=== PATIENT | male | born 1955 | race Caucasian/White ===

== ENCOUNTER 2019-04-03 14:34 | Inpatient (IN) ==
--- NOTE | 2019-04-03 15:02 | Emergency Department Note ---
ED Disposition Clinical Impression: Community acquired pneumonia Qualifiers: Laterality: left Lung location: upper lobe of lung Qualified Code(s): J18.1 - Lobar pneumonia, unspecified organism Disposition: Admitted as Observation Condition on Discharge: Fair Referrals: Provider,Referral, [Primary Care Provider] - - Critical Care Critical Care Time: No Attestation: On 04/03/19, the high probability of a clinically significant, sudden or life threatening deterioration of the following system(s) required my full and direct attention, intervention and personal management. The time I documented below is in addition to time spent performing reported procedures but includes the following listed in this critical care notation. Medical Decision Making - [place] Inquiry Pt receiving controlled substance: No Vital Signs: 04/03/19 14:46 Temperature 101.3 F H Temperature Source Oral Pulse Rate [Right Radial] 120 H Respiratory Rate 24 Blood Pressure [Right Arm] 167/96 H Blood Pressure Mean [Right Arm] 119 Blood Pressure Source [Right Arm] Automatic Cuff Blood Pressure Position [Right Arm] Supine 02 Sat by Pulse Oximetry 93 L Oxygen Delivery Method Room Air - Lab Data Lab Results 04/03/19 15:00: WBC 9.8, RBC 5.52, Hgb 15.5, Hct 47.9, MCV 86.8, MCH 28.2, MCHC 32.4, RDW 13.5, Plt Count 270, MPV 9.8, Neut % (Auto) 83.1 H, Lymph % (Auto) 12.3, [place] % (Auto) 3.8, Eos % (Auto) 0.3, Baso % (Auto) 0.4, Neut # (Auto) 8.2 H, Lymph # (Auto) 1.2, [place] # (Auto) 0.4, Eos # (Auto) 0.0, Baso # (Auto) 0.0 04/03/19 15:00: Lactate 1.8 04/03/19 15:44: Sodium 131 L, Potassium 4.4, Chloride 97 L, Carbon Dioxide 23, Anion Gap 15.4 H, BUN 21 H, Creatinine 1.19, Estimated Creat Clear 74, Estimated GFR 62, Est GFR ( Amer) 75, Glucose 124 H, Calcium 8.3 L Result diagrams: 04/03/19 15:00 04/03/19 15:44 Orders (Tests/Meds): ED MEDICATIONS Generic Name Dose Route Start Last Admin Trade Name Freq PRN Reason Stop Dose Admin Ceftriaxone Sodium 1 gm/ 50 mls @ 100 mls/hr 04/03/19 16:15 04/03/19 16:13 Sodium Chloride IV 04/17/19 16:14 100 mls/hr Q24H MIRI Administration Protocol Azithromycin 500 mg/ Sodium 250 mls @ 250 mls/hr 04/03/19 16:15 04/03/19 16:23 Chloride IV 04/17/19 16:14 250 mls/hr Q24H MIRI Administration Protocol Discontinued Medications Generic Name Dose Route Start Last Admin Trade Name Freq PRN Reason Stop Dose Admin Acetaminophen 1,000 mg 04/03/19 15:06 04/03/19 15:07 Tylenol 500mg Tablet PO 04/03/19 15:07 1,000 mg ONCE ONE Administration ORDERS Category Date Time Status Diarrhea 23 Panel, PCR Stat Lab 04/03/19 15:20 Ordered Upper Respiratory Panel, PCR Stat Lab 04/03/19 17:27 Ordered Urinalysis and Microscopic Stat Lab 04/03/19 15:16 Ordered Blood Culture Stat Micro 04/03/19 15:00 Received - Radiology Data #1 Image(s): Chest Image Reviewed: Yes I reviewed the patient's radiology image Large infiltrate left upper to midlung - Physician Consults Physician Consulted: Isabella Time: 17:28 Reason -: Admission Comment/Response: Agrees to admit the patient to the hospital. We discussed the patient's clinical information, including history, exam, laboratory and radiology results and ED course. Per hospital procedure, I will write temporary bridge inpatient orders on the patient. Specific orders requested by the admitting physician: Continue antibiotics. Upper respiratory panel. General Adult HPI - General Chief complaint: Fever Stated complaint: flu+, lethargic, loss of appetite Time Seen by Provider: 04/03/19 15:01 Mode of Arrival: Wheelchair Limitations: No Limitations Description of Symptoms (Recalled from ER Triage Doc. by RN): Positive flu on 03/31/19, states he feels worse today. - History of Present Illness HPI narrative: Sick for about 1 week. Has had frontal headaches, generalized weakness, intermittent explosive diarrhea, malaise, intermittent confusion, poor appetite. Denies cough, rhinorrhea, sore throat. states infrequent intermittent cough. Denies shortness of breath, but states he seems to be breathing heavily at times. No vomiting. Denies abdominal pain. No neck pain or stiffness. Seen at urgent treatment center in [place] on 03/31/2019 and had a flu test that was positive. Prescribed Tamiflu. No significant change in condition. Does not have a primary care provider. Normally healthy, on no medications. He is a smoker. - Related Data Allergies Allergy/AdvReac Type Severity Reaction Status Date / Time No Known Allergies Allergy Verified 04/03/19 14:53 [facility] History - Hepatitis A Screen Drug use history?: No High risk sexual behaviors?: No History of sexually transmitted infection?: No Currently employed?: No Childcare worker?: No Do you have indoor plumbing?: Yes Do you have electricity?: Yes Attestation statement:: This patient has been screened for Hepatitis A risk factors. I have reviewed the patient's past medical history: Yes ROS Obtained: Yes All systems reviewed & no additional complaints - Constitutional Constitutional: Reports fatigue, Reports fever(s), Reports poor appetite, Reports lethargy, Reports malaise, Reports weakness - ENT Ears, Nose, Mouth, and Throat: Denies nasal discharge, Denies sore throat - Cardiovascular Cardiovascular: Denies chest pain - Respiratory Respiratory: No cough, No dyspnea - Gastrointestinal Gastrointestingal: Reports: diarrhea. Denies: abdominal pain - Genitourinary Male Genitourinary: Denies difficulty urinating - Neurologic Neurologic: Reports headache(s) Physical Exam - General General appearance: alert, in no apparent distress - Head Head exam: atraumatic, normocephalic - Eye Eye exam: Present: normal appearance, PERRL, EOMI - ENT ENT exam: Present: mucous membranes dry - Neck Neck exam: Present: normal inspection, full ROM, trachea midline. Absent: meningismus, lymphadenopathy - Chest Chest inspection: Present: normal inspection, symmetric chest wall rise - Respiratory Respiratory exam: Present: other (crackles Left). Absent: respiratory distress - Cardiovascular Cardiovascular exam: Present: regular rate, normal rhythm, normal heart sounds - Abdominal Exam Abdominal exam: Present: soft, tenderness, normal bowel sounds. Absent: distention, guarding, rebound, rigidity Abdominal tenderness: Present: diffuse, mild - Extremities Exam Extremities exam: Present: normal inspection - Neurological Exam Neurological exam: Present: alert, oriented X3 - Psychiatric Psychiatric exam: Present: normal affect, normal mood - Skin Skin exam: Present: warm, dry
[2019-04-03 15:17] LABS: Basophils % 0.4 % (0.1-2.0); Eosinophils % 0.3 % (0.1-12.0); Hematocrit 47.9 % (42.0-52.0); Hemoglobin 15.5 g/dL (14.1-18.0); Lymphocytes # 1.2 K/mm3 (0.7-4.5); Lymphocytes % 12.3 % (10-50); Mean Corpuscular HGB Conc 32.4 g/dL (31.8-35.4); Mean Corpuscular Volume 86.8 fl (80-94); Mean Platelet Volume 9.8 fl (7.4-10.4); Monocytes # 0.4 K/mm3 (0.1-1.0); Monocytes % 3.8 % (1.7-9.3); Neutrophils # 8.2 K/mm3 (1.8-7.8); Neutrophils % 83.1 % (37.0-80.0); Platelet Count 270 K/mm3 (142-424); Red Blood Count 5.52 M/mm3 (4.60-6.20); Red Cell Distribution Width 13.5 % (11.5-17.5); White Blood Count 9.8 K/mm3 (4.8-10.8)
[2019-04-03 16:03] LABS: Anion Gap 15.4 mEq/L (5-15); Calcium 8.3 mg/dL (8.5-10.1)
[2019-04-03 17:35] LABS: Coronavirus 229E Not Detected (NotDetected); Coronavirus NL63 Not Detected (NotDetected); Coronavirus OC43 Not Detected (NotDetected); Coronovirus HKU1,PCR Not Detected (NotDetected)
--- NOTE | 2019-04-04 07:35 | Pharmacy Consult Notes ---
[facility] Pharmacy VTE Monitoring - Patient Demographics Admission date: 04/04/19 Report Date: 04/04/19 Time: 07:35 Allergies/Adverse Reactions: Patient Allergies No Known Allergies Allergy (Verified 04/03/19 14:53) Height: 1.91 m Weight: 97.324 kg Patient Problems: Current Active Problems (Updated 04/03/19 @ 16:08 by Jadiel Alberts MD) Community acquired pneumonia (Acute) - VTE Risk Labs: VTE Related Lab Results Hgb 15.5 g/dL (14.1-18.0) 04/03/19 15:00 Hct 47.9 % (42.0-52.0) 04/03/19 15:00 Plt Count 270 K/mm3 (142-424) 04/03/19 15:00 BUN 21 mg/dL (7-18) H 04/03/19 15:44 Creatinine 1.19 mg/dL (0.70-1.30) 04/03/19 15:44 Estimated Creat Clear 74 mL/min (50-200) 04/03/19 15:44 Was VTE Risk Assessment Performed: Yes VTE Risk Level: Very Low Risk Clinical Trial Participant: No - Prophylaxis VTE Prophylaxis Ordered?: Yes Types of VTE Prophylaxis: TEDS Knee High
--- NOTE | 2019-04-04 07:45 | History & Physical Report ---
*Admission Date: 04/04/19 *Chief complaint: Cough/fever *History of present illness: 63-year-old white male, who has enjoyed excellent health and functional status but is a lifelong smoker, came to the emergency department with fever, chills, shortness of air and weakness. He had attended an urgent treatment center the day before where he had been diagnosed with influenza based on a positive rapid antigen test, and had been placed on Tamiflu. Failed to improve, and came to the emergency department. He was found to have significant infiltrate in the chest, and given his relatively low oxygen levels he was admitted to hospital for intravenous therapy, further diagnostic testing and pulmonary toilet. [facility] History I have reviewed the patient's past medical history: Yes Medical History: Denies:: Cancer, Diabetes Mellitus Type 1, Diabetes Mellitus Type 2, MRSA *Have you ever received a pneumonia vaccine?: No *Have you received a flu vaccine this season?: No Amputation: No - *Social History Educational Level: Attended College Smoking Status: Current every day smoker Tobacco Type: cigarettes # Packs/Day (cigarettes): 2 Alcohol Intake: current Alcohol Intake Frequency:: holidays/special occasions only *Occupational Status:: employed Housing: house Household Members: spouse, children *Travel in the last 8 weeks: None - Psychiatric History Expresses thoughts of harming self/others: None Suicide Plan Description: No Plan Family Hx:: No significant family history Review of Systems - Review of Systems Review of systems:: pertinent systems reviewed and negative unless documented below - Constitutional Reports body ache(s), Reports chills, Reports fever(s), Reports headache(s), Denies anorexia - Eyes Denies blind spots, Denies blurry vision - ENT Denies abnormal hearing, Denies poor balance, Denies dizziness - *Cardiovascular Reports shortness of breath, Denies chest pain, Denies chest pain at rest, Denies shortness of breath with activity, Denies irregular heart rhythm, Denies shortness of breath when lying down - *Respiratory Reports chest congestion, Reports cough, Reports shortness of breath, Denies change in phlegm color - *Gastrointestinal Denies abdominal pain, Denies change in stools, Denies heartburn - *Genitourinary Denies difficulty urinating, Denies erectile dysfunction - *Musculoskeletal Denies abnormal walking, Denies joint swelling - Integumentary/Breasts Denies change in skin color, Denies changing lesions, Denies yellowing of the skin - *Neurologic Reports headache(s), Reports weakness - Psychiatric Denies abnormal sleep pattern - Endocrine Denies cold intolerance, Denies excessive sweating Meds Home Medications Medication Instructions Recorded Confirmed Type No Known Home Medications 04/03/19 04/03/19 History Allergies Allergy/AdvReac Type Severity Reaction Status Date / Time No Known Allergies Allergy Verified 04/03/19 14:53 Exam Vital signs and Labs for Last 24 Hours: Temp Pulse Resp BP Pulse Ox 99.7 F H 112 H 26 H 134/83 92 L 04/04/19 04:00 04/04/19 06:12 04/04/19 04:00 04/04/19 04:00 04/04/19 06:12 Laboratory Results - last 24 hr 04/03/19 15:00: WBC 9.8, RBC 5.52, Hgb 15.5, Hct 47.9, MCV 86.8, MCH 28.2, MCHC 32.4, RDW 13.5, Plt Count 270, MPV 9.8, Neut % (Auto) 83.1 H, Lymph % (Auto) 12.3, [place] % (Auto) 3.8, Eos % (Auto) 0.3, Baso % (Auto) 0.4, Neut # (Auto) 8.2 H, Lymph # (Auto) 1.2, [place] # (Auto) 0.4, Eos # (Auto) 0.0, Baso # (Auto) 0.0 04/03/19 15:00: Lactate 1.8 04/03/19 15:44: Sodium 131 L, Potassium 4.4, Chloride 97 L, Carbon Dioxide 23, Anion Gap 15.4 H, BUN 21 H, Creatinine 1.19, Estimated Creat Clear 74, Estimated GFR 62, Est GFR ( Amer) 75, Glucose 124 H, Calcium 8.3 L 04/03/19 17:30: Chlamy pneumoniae PCR Not detected, Adenovirus (PCR) Not detected, B. pertussis DNA (PCR) Not detected, Coronavirus OC43 (PCR) Not detected, Coronavirus HKU1 (PCR) Not detected, Coronavirus 229E (PCR) Not detected, Coronavirus NL63 (PCR) Not detected, Human Metapneumovir PCR Not detected, Influenza A (H1) PCR Not detected, Influ A (H1N1/09) PCR Not detected, Influenza A (H3) PCR Not detected, Influenza Type A (PCR) Not detected, Influenza Type B (PCR) Not detected, M. pneumoniae (PCR) Not detected, Parainfluenza 1 (PCR) Not detected, Parainfluenza 2 (PCR) Not detected, Parainfluenza 3 (PCR) Not detected, Parainfluenza 4 (PCR) Not detected, RSV (PCR) Not detected, Entero/Rhino (PCR) Not detected I & O for Last 24 hours: Intake & Output 04/01/19 04/02/19 04/03/19 04/04/19 11:59 11:59 11:59 11:59 Weight 214 lb 9 oz Narrative: Heart rate regular, patient is pleasant, alert, oriented x3. Oropharynx slightly dry, nicotine halitosis, otherwise clear. No JVD. Lungs have crackles and rhonchi in the left lung field up to the midlung. Right side also has some rhonchi. No edema or clubbing. Neurologically intact. Assessment and Plan (1) Personal history of nicotine dependence Current visit: Yes Status: Acute Category: Medical Code(s): Z87.891 - Personal history of nicotine dependence Discussed smoking cessation in the future. Currently doing well in the hospital. (2) Community acquired pneumonia Current visit: Yes Status: Acute Qualifiers: Laterality: left Lung location: upper lobe of lung Qualified Code(s): J18.1 - Lobar pneumonia, unspecified organism Category: Medical Code(s): J18.9 - Pneumonia, unspecified organism Multilobar pneumonia, aggressive antibiotic therapy, await sputum culture.
--- NOTE | 2019-04-04 15:25 | Carotid Imaging Report ---
"Cerebrovascular Exam Indications: 781.3 Lack of coordination. IMPRESSIONS 1. The bilateral vertebral arteries are patent with normal antegrade flow. 2. Study suggests less than 20% stenosis involving the right internal carotid artery and the left internal carotid artery. History: Risk factors: Current tobacco use. Altered mental status Carotid duplex study. Complete study and Doppler flow study including spectral analysis, color and de la torre scale imaging. Location: Bedside. Patient status: Inpatient. Tables: Arterial flow: + +--------+--------+ |Location |V sys |V ed | + +--------+--------+ |Right CCA - proximal|67.6cm/s|18.9cm/s| + +--------+--------+ |Right CCA - distal |70.7cm/s|21.2cm/s| + +--------+--------+ |Right ECA |91.1cm/s|--------| + +--------+--------+ |Right ICA - proximal|72.3cm/s|25.9cm/s| + +--------+--------+ |Right ICA - mid |105cm/s |38.5cm/s| + +--------+--------+ |Right ICA - distal |95.9cm/s|28.3cm/s| + +--------+--------+ |Right vertebral |44.8cm/s|--------| + +--------+--------+ |Left CCA - proximal |83.3cm/s|19.6cm/s| + +--------+--------+ |Left CCA - distal |81.7cm/s|26.7cm/s| + +--------+--------+ |Left ECA |77.8cm/s|--------| + +--------+--------+ |Left ICA - proximal |69.9cm/s|18.9cm/s| + +--------+--------+ |Left ICA - mid |73.1cm/s|20.4cm/s| + +--------+--------+ |Left ICA - distal |69.1cm/s|21.2cm/s| + +--------+--------+ |Left vertebral |45.6cm/s|--------| + +--------+--------+ Velocity ratios: + + + + + + | |Right, V sys|Right, V ed|Left, V sys|Left, V ed| + + + + + + |Max ICA/dist CCA|1.49 |1.82 |0.89 |0.79 | + + + + + + (Report amended ) Electronically signed by: Esdras Leos [id number]"
[2019-04-04 19:01] LABS: Amphetamine/Metha Screen,Urine Negative ng/mL (<1000); Barbiturates Screen,Urine Negative ng/mL (<200); Benzodiazepines Screen,Urine Negative ng/mL (<200); Cannabinoid Screen,Urine Negative ng/mL (<50); Cocaine Screen,Urine Negative ng/mL (<300); Methadone Screen,Urine Negative ng/mL (<300); Opiate Screen,Urine Negative ng/mL (<300); Phencyclidine Screen,Urine Negative ng/mL (<25)
[2019-04-04 19:25] LABS: Appearance,Urine CLEAR (Clear); Blood, Urine 2+ (Negative); Color,Urine YELLOW (Yellow); Glucose,Urine (UA) Negative (Negative); Ketones,Urine Negative (Negative); Leukocyte Esterase,Urine Negative (Negative); Microscopic, Urine URINE MICROSCOPIC (MICROSCOPIC); Protein,Urine 2+ (Negative); Specific Gravity, Urine 1.025 (1.005-1.030)
[2019-04-04 19:43] LABS: Bilirubin,Urine 1+ (Negative)
[2019-04-04 19:44] LABS: Bacteria,Urine 1+ /lpf; RBC,Urine 20-50 #/hpf (0-3); Squamous Epithelial Cell,Urine Occasional #/hpf (0-5)
[2019-04-04 19:50] LABS: Basophils % 0.4 % (0.1-2.0); Eosinophils % 0.1 % (0.1-12.0); Hematocrit 43.3 % (42.0-52.0); Hemoglobin 14.1 g/dL (14.1-18.0); Lymphocytes # 0.5 K/mm3 (0.7-4.5); Lymphocytes % 5.8 % (10-50); Mean Corpuscular HGB Conc 32.7 g/dL (31.8-35.4); Mean Corpuscular Volume 88.2 fl (80-94); Mean Platelet Volume 8.5 fl (7.4-10.4); Monocytes # 0.5 K/mm3 (0.1-1.0); Monocytes % 5.7 % (1.7-9.3); Neutrophils # 8.1 K/mm3 (1.8-7.8); Platelet Count 275 K/mm3 (142-424); Red Blood Count 4.91 M/mm3 (4.60-6.20); Red Cell Distribution Width 13.7 % (11.5-17.5); White Blood Count 9.2 K/mm3 (4.8-10.8)
[2019-04-04 19:56] LABS: Anion Gap 12.2 mEq/L (5-15); Calcium 8.3 mg/dL (8.5-10.1)
[2019-04-04 20:55] LABS: Lymphocytes % 4 % (10-50); Monocytes % 3 % (2-9); Neutrophils % 85 % (42-76); RBC Morphology Normal; Total Cells Counted 100
--- NOTE | 2019-04-05 08:29 | Progress Note ---
Internal Medicine - PN: Subj *Date: 04/05/19 *Time: 08:26 Interval history: Patient has done fairly well in regards to eating and drinking. Nurses last night noticed that he was a little bit more confused and somewhat sluggish to respond, his who was visiting him yesterday also told our nursing staff that he had been exhibiting some mental sluggishness over the past [address] scan of head which was nondiagnostic for acute issues, showing some age-related changes, and also ordered urine drug screen, urinalysis and repeat labs which were really nondiagnostic. This morning the patient has slept well and states that he is feeling better, but does exhibit some sluggishness of his speech and some cognitive slowing that I did not appreciate yesterday morning. He notes a pressure feeling when he sits up and is very slow when he moves around deliberately because of this potential for a headache sensation if he sits up rapidly. Exam Vital signs and Labs for Last 24 Hours: Temp Pulse Resp BP Pulse Ox 97.8 F 103 H 18 148/89 H 90 L 04/05/19 07:30 04/05/19 07:30 04/05/19 07:30 04/05/19 07:30 04/05/19 07:30 Laboratory Results - last 24 hr 04/04/19 14:51: TSH 0.47 04/04/19 18:43: Urine Opiates Screen Negative, Urine Methadone Screen Negative, Ur Barbituates Screen Negative, Ur Phencyclidine Scrn Negative, Ur Amphetamines Screen Negative, U Benzodiazepines Scrn Negative, Urine Cocaine Screen Negative, U Marijuana (THC) Screen Negative 04/04/19 18:43: Urine Color Yellow, Urine Appearance Clear, Urine pH 6.0, Ur Specific [place] 1.025, Urine Protein 2+, Urine Glucose (UA) Negative, Urine Ketones Negative, Urine Blood 2+, Urine Nitrate Negative, Urine Bilirubin 1+ A, Urine Urobilinogen 1.0, Ur Leukocyte Esterase Negative, Urine RBC 20-50, Urine WBC 3-5, Ur Squamous Epith Cells Occasional, Urine Bacteria 1+ 04/04/19 18:43: Urine Eosinophils Absent 04/04/19 19:34: WBC 9.2, RBC 4.91, Hgb 14.1, Hct 43.3, MCV 88.2, MCH 28.8, MCHC 32.7, RDW 13.7, Plt Count 275, MPV 8.5, Neut % (Auto) 88.0 H, Lymph % (Auto) 5.8 L, [place] % (Auto) 5.7, Eos % (Auto) 0.1, Baso % (Auto) 0.4, Neut # (Auto) 8.1 H, Lymph # (Auto) 0.5 L, [place] # (Auto) 0.5, Eos # (Auto) 0.0, Baso # (Auto) 0.0, Total Counted 100, Neutrophils % (Manual) 85 H, Band Neutrophils % 8.0, Lymphocytes % (Manual) 4 L, Monocytes % (Manual) 3, Platelet Estimate Normal, RBC Morphology Normal 04/04/19 19:34: Sodium 135 L, Potassium 4.2, Chloride 100, Carbon Dioxide 27, Anion Gap 12.2, BUN 20 H, Creatinine 1.29, Estimated Creat Clear 82, Estimated GFR 56 L, Est GFR ( Amer) 68, Glucose 122 H, Calcium 8.3 L I & O for Last 24 hours: Intake & Output 04/02/19 04/03/19 04/04/19 04/05/19 11:59 11:59 11:59 11:59 Intake Total 240 / 240 240 / 240 Balance 240 / 240 240 / 240 Weight 214 lb 9 oz 212 lb 4 oz Microbiology Reports for the Last 24 Hours: Microbiology 04/04/19 19:50 Sputum - Expectorated Sputum Gram Stain - Final 04/04/19 06:15 Sputum - Expectorated Sputum Gram Stain - Final 04/04/19 06:15 Sputum - Expectorated Sputum Sputum Culture - Final Narrative: Patient is awake, alert, oriented x2, a little fuzzy about the exact date. Able to follow commands but does so very slowly and his speech is not slurred but somewhat sluggish with very minimal expressive aphasia. Cranial nerves are otherwise intact. He is able to move well, slightly weak, he does have some rigidity to his lower extremities, but Kernig's and Brudzinski's signs are negative. Lungs have better air entry. Left side continues to have some rhonchi, heart rate is regular, soft flow murmur noted. Abdomen is soft and nontender. He has no edema or clubbing. Of note his toenails and fingernails are somewhat more unkempt than I would expect for a man his age and who is employed at a fairly demanding occupation. No skin rash, no joint swelling or redness. Assessment and Plan (1) Personal history of nicotine dependence Current visit: Yes Status: Acute Category: Medical Code(s): Z87.891 - Personal history of nicotine dependence (2) Community acquired pneumonia Current visit: Yes Status: Acute Qualifiers: Laterality: left Lung location: upper lobe of lung Qualified Code(s): J18.1 - Lobar pneumonia, unspecified organism Category: Medical Code(s): J18.9 - Pneumonia, unspecified organism Cultures are pending. From this perspective patient seems to be improving. (3) Change in mental status Current visit: Yes Status: Acute Category: Medical Code(s): R41.82 - Altered mental status, unspecified Multiple possible etiologies. 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 Heavy metals, MRI, ammonia level. Echocardiogram given murmur and possibility of recurrent TIAs-I requested a bubble study. I spoken with radiology and they will do a fluoroscopically guided lumbar puncture today to make sure were not dealing with a viral encephalitis or herpes simplex encephalitis. CT scan reassuring for significant acute problems and carotid Dopplers yesterday were unrevealing. (4) Heart murmur Current visit: Yes Status: Acute Category: Medical Code(s): R01.1 - Cardiac murmur, unspecified Check echo as noted
--- NOTE | 2019-04-05 10:08 | Cardiology Report ---
PROCEDURE: 2-D M-mode and color Doppler study INDICATIONS FOR THE TEST: Chest pain COPD Heart Murmur Tobacco Smoking+ Palpitations Fatigue Syncope Edema Hypertension Diabetes Mellitus Rheumatic Fever SOB+EDGE Obesity Hyperlipidemia Family History HD Additional History ordered as bubble study, AMS PATIENT INFORMATION HEIGHT: 75 WEIGHT: 214 GENDER: Male B/P: 134/83 2-D/M-MODE INTERPRETATION: 2-D MEASUREMENTS OBSERVED VALUES IN CMS Right Ventricular Dimension (RVDd) 1.7 Interventricular Septum (Thickness)(IVsd) 0.8 Left Ventricular Internal Dimensions(LVIDd) 4.7 Left Ventricular Posterior Wall (Thickness)(LVPWd) 1.0 Aortic Root 3.4 Aortic Cusp Separation 2.2 Left Atrial Dimensions (LAD) 2.7 2D 1. Left atrium is normal size, left ventricle is normal size, there is no concentric left ventricular hypertrophy, visually estimated ejection fraction 55% with no regional wall motion abnormality. 2. The right atrium and right ventricle are normal size and contractility. 3. The aortic valve is minimally thickened and fibrosed. 4. The mitral and tricuspid valve are grossly normal. 5. The pulmonic valve is poorly visualized. 6. No significant pericardial effusion noted. DOPPLER INTERROGATION: Doppler interrogation of the aortic, mitral and tricuspid valvular presence of mild mitral and tricuspid regurgitation, tricuspid regurgitation jet velocity is inadequate for calculation of right ventricular systolic pressure, grade 1 diastolic dysfunction seen with tissue Doppler evidence of raised left atrial pressure. Inferior vena cava is normal size with normal inspiratory collapse. Agitated saline contrast study fails to identify intracardiac shunt CONCLUSION: 1. Normal left ventricular size, visually estimated ejection fraction 55% with no regional wall motion abnormality, visually estimated ejection fraction 55% with no regional wall motion abnormality. Grade 1 diastolic dysfunction seen with tissue Doppler evidence of raised left atrial pressure. 2. Mild mitral and tricuspid regurgitation, tricuspid regurgitation jet velocity is inadequate for calculation of the right ventricular systolic pressure, inferior vena cava is normal size with normal inspiratory collapse. 3. No significant pericardial effusion noted. 4. Agitated saline contrast study fails to identify intracardiac shunt.
[2019-04-05 10:15] LABS: Total Protein,CSF 30.9 mg/dL (15-45)
[2019-04-05 11:33] LABS: Appearance,CSF Clear (Clear); Red Blood Cell,CSF 1 cells/uL (0); White Blood Cell,CSF 3 cells/uL (0-5)
[2019-04-05 12:49] LABS: Albumin Level 1.7 gm/dL (3.4-5.0); Albumin/Globulin Ratio 0.4 (1.1-1.8); Bilirubin,Total 0.5 mg/dL (0.2-1.0); Calcium 8.3 mg/dL (8.5-10.1); Globulin 4.6 gm/dl (1.3-3.2); Total Protein,Serum 6.3 gm/dL (6.4-8.2)
[2019-04-05 12:56] LABS: Basophils % 0.3 % (0.1-2.0); Eosinophils % 0.1 % (0.1-12.0); Hematocrit 43.6 % (42.0-52.0); Hemoglobin 14.4 g/dL (14.1-18.0); Lymphocytes # 0.6 K/mm3 (0.7-4.5); Mean Corpuscular HGB Conc 32.9 g/dL (31.8-35.4); Mean Corpuscular Volume 88.7 fl (80-94); Mean Platelet Volume 8.6 fl (7.4-10.4); Monocytes # 0.6 K/mm3 (0.1-1.0); Neutrophils % 85.5 % (37.0-80.0); Platelet Count 290 K/mm3 (142-424); Red Blood Count 4.92 M/mm3 (4.60-6.20); Red Cell Distribution Width 13.8 % (11.5-17.5); White Blood Count 8.2 K/mm3 (4.8-10.8)
[2019-04-05 15:05] LABS: Polynuclear WBCs,CSF 0 %
[2019-04-05 15:06] LABS: Mononuclear WBCs,CSF 100 %
[2019-04-05 15:44] LABS: Lymphocytes % 6 % (10-50); Monocytes % 3 % (2-9); Neutrophils % 91 % (42-76); RBC Morphology Normal; Total Cells Counted 100
[2019-04-06 06:34] LABS: Basophils # 0.1 K/mm3 (0-0.2); Basophils % 0.7 % (0.1-2.0); Eosinophils # 0.1 K/mm3 (0.0-0.4); Eosinophils % 0.9 % (0.1-12.0); Hematocrit 43.6 % (42.0-52.0); Hemoglobin 13.9 g/dL (14.1-18.0); Lymphocytes # 0.7 K/mm3 (0.7-4.5); Lymphocytes % 6.9 % (10-50); Mean Corpuscular HGB Conc 31.8 g/dL (31.8-35.4); Mean Corpuscular Volume 88.4 fl (80-94); Mean Platelet Volume 8.6 fl (7.4-10.4); Monocytes # 0.6 K/mm3 (0.1-1.0); Monocytes % 6.5 % (1.7-9.3); Neutrophils # 8.3 K/mm3 (1.8-7.8); Neutrophils % 85.1 % (37.0-80.0); Platelet Count 343 K/mm3 (142-424); Red Blood Count 4.93 M/mm3 (4.60-6.20); Red Cell Distribution Width 13.8 % (11.5-17.5); White Blood Count 9.8 K/mm3 (4.8-10.8)
[2019-04-06 06:38] LABS: Albumin Level 1.7 gm/dL (3.4-5.0); Albumin/Globulin Ratio 0.4 (1.1-1.8); Anion Gap 14.7 mEq/L (5-15); Bilirubin,Total 0.4 mg/dL (0.2-1.0); Calcium 8.1 mg/dL (8.5-10.1); Globulin 4.5 gm/dl (1.3-3.2); Total Protein,Serum 6.2 gm/dL (6.4-8.2)
[2019-04-06 06:59] LABS: Eosinophils % 1 % (0-3); Lymphocytes % 8 % (10-50); Monocytes % 6 % (2-9); Neutrophils % 81 % (42-76); RBC Morphology Normal; Total Cells Counted 100
--- NOTE | 2019-04-06 08:22 | Discharge Summary ---
General - General Admission date:: 04/03/19 Discharge date: 04/06/19 HPI HPI: 63-year-old white male, who has enjoyed excellent health and functional status but is a lifelong smoker, came to the emergency department with fever, chills, shortness of air and weakness. He had attended an urgent treatment center the day before where he had been diagnosed with influenza based on a positive rapid antigen test, and had been placed on Tamiflu. Failed to improve, and came to the emergency department. He was found to have significant infiltrate in the chest, and given his relatively low oxygen levels he was admitted to hospital for intravenous therapy , further diagnostic testing and pulmonary toilet. Hospital Course Hospital Course: Patient was admitted, IV antibiotics were started, blood cultures were negative, sputum culture so far are nondiagnostic. Patient had an episode of nocturnal confusion for 2 nights in a row, and extensive work-up was done including CT scan of head, MRI of head which revealed evidence of gliotic changes slightly worse than expected per his age, as well as echocardiogram which revealed no evidence of intracardiac shunt, mildly thickened aortic valve and grade 1 diastolic dysfunction. Lumbar puncture was done, most results are pending but initial studies did not look as if patient had encephalitis. Patient improved with fluids, slight prerenal azotemia resolved and this morning patient is feeling much better, able to take care of his activities of daily living and eating well. He did have an episode of incontinence through the night, he thought this was because of fatigue and deep sleeping. He wishes to go home today. Plan will be to discharge home with antibiotics as noted. Close follow-up in our office on Tuesday. Hopefully his will be there so that I can get a better idea of his mental status at home. Other labs hopefully will be back at that point including heavy metals and LP studies. Objective Vital signs: Temp Pulse Resp BP Pulse Ox 98.2 F 82 18 118/73 92 L 04/06/19 04:00 04/06/19 06:15 04/06/19 04:00 04/06/19 04:00 04/06/19 06:15 Narrative: Patient is pleasant and alert. Oriented x3, a little fuzzy about the date but knows that it is March/summer 2018. Lungs are much better aerated. Good air movement. Oropharynx clear, no JVD. Abdomen soft and nontender. No extremity edema or clubbing. Able to move all extremities well. No skin rash. Results Labs on day of discharge: Labs from last 24 hours 04/06/19 04/06/19 04/05/19 05:53 05:53 12:10 WBC 9.8 RBC 4.93 Hgb 13.9 L Hct 43.6 MCV 88.4 MCH 28.1 MCHC 31.8 RDW 13.8 Plt Count 343 MPV 8.6 Neut % (Auto) 85.1 H Lymph % (Auto) 6.9 L George % (Auto) 6.5 Eos % (Auto) 0.9 Baso % (Auto) 0.7 Neut # (Auto) 8.3 H Lymph # (Auto) 0.7 George # (Auto) 0.6 Eos # (Auto) 0.1 Baso # (Auto) 0.1 Total Counted 100 Neutrophils % (Manual) 81 H Band Neutrophils % 4.0 Lymphocytes % (Manual) 8 L Monocytes % (Manual) 6 Eosinophils % (Manual) 1 Platelet Estimate Normal RBC Morphology Normal Sodium 135 L Potassium 3.7 Chloride 101 Carbon Dioxide 23 Anion Gap 14.7 BUN 17 Creatinine 0.97 Estimated Creat Clear 104 Estimated GFR 78 Est GFR ( Amer) 95 Glucose 107 H Calcium 8.1 L Total Bilirubin 0.4 AST 133 H ALT 66 Alkaline Phosphatase 60 Ammonia 39 Total Protein 6.2 L Albumin 1.7 L Globulin 4.5 H Albumin/Globulin Ratio 0.4 L CSF Volume CSF Appearance CSF WBC CSF RBC CSF Mononuclear WBCs % CSF Polynuclear WBCs % CSF Glucose CSF Total Protein 04/05/19 04/05/19 04/05/19 12:10 12:10 09:42 WBC 8.2 RBC 4.92 Hgb 14.4 Hct 43.6 MCV 88.7 MCH 29.2 MCHC 32.9 RDW 13.8 Plt Count 290 MPV 8.6 Neut % (Auto) 85.5 H Lymph % (Auto) 7.0 L George % (Auto) 7.0 Eos % (Auto) 0.1 Baso % (Auto) 0.3 Neut # (Auto) 7.0 Lymph # (Auto) 0.6 L George # (Auto) 0.6 Eos # (Auto) 0.0 Baso # (Auto) 0.0 Total Counted 100 Neutrophils % (Manual) 91 H Band Neutrophils % Lymphocytes % (Manual) 6 L Monocytes % (Manual) 3 Eosinophils % (Manual) Platelet Estimate Normal RBC Morphology Normal Sodium 133 L Potassium 4.0 Chloride 99 Carbon Dioxide 24 Anion Gap 14.0 BUN 21 H Creatinine 1.11 Estimated Creat Clear 94 Estimated GFR 67 Est GFR ( Amer) 81 Glucose 104 Calcium 8.3 L Total Bilirubin 0.5 AST 125 H ALT 60 Alkaline Phosphatase 56 Ammonia Total Protein 6.3 L Albumin 1.7 L Globulin 4.6 H Albumin/Globulin Ratio 0.4 L CSF Volume CSF Appearance CSF WBC CSF RBC CSF Mononuclear WBCs % CSF Polynuclear WBCs % CSF Glucose 63 CSF Total Protein 30.9 04/05/19 09:42 WBC RBC Hgb Hct MCV MCH MCHC RDW Plt Count MPV Neut % (Auto) Lymph % (Auto) George % (Auto) Eos % (Auto) Baso % (Auto) Neut # (Auto) Lymph # (Auto) George # (Auto) Eos # (Auto) Baso # (Auto) Total Counted Neutrophils % (Manual) Band Neutrophils % Lymphocytes % (Manual) Monocytes % (Manual) Eosinophils % (Manual) Platelet Estimate RBC Morphology Sodium Potassium Chloride Carbon Dioxide Anion Gap BUN Creatinine Estimated Creat Clear Estimated GFR Est GFR ( Amer) Glucose Calcium Total Bilirubin AST ALT Alkaline Phosphatase Ammonia Total Protein Albumin Globulin Albumin/Globulin Ratio CSF Volume 12 CSF Appearance Clear CSF WBC 3 CSF RBC 1 CSF Mononuclear WBCs % 100 CSF Polynuclear WBCs % 0 CSF Glucose CSF Total Protein Preliminary micro results at discharge 04/03/19 15:00 Blood Culture - Preliminary Blood NO GROWTH AFTER 48 HOURS 04/03/19 15:00 Blood Culture - Preliminary Blood NO GROWTH AFTER 48 HOURS 04/04/19 19:50 Sputum Culture - Preliminary Sputum - Expectorated Sputum DS: Diagnosis - Discharge Diagnosis (1) Personal history of nicotine dependence Status: Chronic (2) Community acquired pneumonia Status: Acute (3) Change in mental status Status: Resolved (4) Heart murmur Status: Chronic Discharge Plan - Patient Discharge Instructions ACTIVITY: Continue current activity DIET: continue same diet Patient Instructions: DI for Pneumonia -- Adult, DI for Lumbar Puncture, How to Quit Smoking - Follow up Plan Follow up with: Won Mason MD [Staff Physician] - 04/09/19 Disposition: Home, Self-Snf Medications: Home Medications Medication Instructions Recorded Confirmed Type No Known Home Medications 04/03/19 04/03/19 History Azithromycin [Zithromax 250mg 250 mg PO DIRECTED #6 tab 04/06/19 Rx tab] Cefdinir [Omnicef 300mg Capsule] 300 mg PO BID #14 cap 04/06/19 Rx Prescriptions/Medication Reconciliation: New Cefdinir [Omnicef 300mg Capsule] 300 mg PO BID #14 cap Azithromycin [Zithromax 250mg tab] 250 mg PO DIRECTED #6 tab No Action No Known Home Medications
== END 2019-04-06 10:57 | disposition home or self-care (01) | DRG 195 ==
LOC: 2ND 14:34 → ER 14:34 → OBSVTOIN 17:56 → 2ND 17:57
PROVIDERS: ADMIT Internal Medicine Adolescent Medicine; ATTEND Internal Medicine Adolescent Medicine
DX: J18.9 Pneumonia, unspecified organism; R41.82 Altered mental status, unspecified; R01.1 Cardiac murmur, unspecified; F17.210 Nicotine dependence, cigarettes, uncomplicated
CPT/HCPCS: 36415; 62270; 70450; 70553; 71020; 71046; 80048; 80053; 80305; 81001; 82140; 82175; 82945; 83605; 83655; 83825; 84155; 84443; 85007; 85025; 87040; 87070; 87205; 87486; 87529; 87581; 87633; 87798; 87899; 89051; 93306; 93880; 94640; 94761; 96365; 99284; A9576; J0456

== ENCOUNTER → 2019-06-11 12:20 | Outpatient (CLI) | payer BC, SELFPAY ==
[2019-06-11 12:43] LABS: Basophils # 0.1 K/mm3 (0-0.2); Basophils % 0.9 % (0.1-2.0); Eosinophils # 0.3 K/mm3 (0.0-0.4); Eosinophils % 3.5 % (0.1-12.0); Hematocrit 43.3 % (42.0-52.0); Hemoglobin 14.2 g/dL (14.1-18.0); Lymphocytes # 2.7 K/mm3 (0.7-4.5); Mean Corpuscular HGB Conc 32.8 g/dL (31.8-35.4); Mean Corpuscular Volume 91.4 fl (80-94); Mean Platelet Volume 7.5 fl (7.4-10.4); Monocytes # 0.5 K/mm3 (0.1-1.0); Monocytes % 5.7 % (1.7-9.3); Neutrophils # 5.2 K/mm3 (1.8-7.8); Neutrophils % 58.9 % (37.0-80.0); Platelet Count 322 K/mm3 (142-424); Red Blood Count 4.74 M/mm3 (4.60-6.20); Red Cell Distribution Width 14.9 % (11.5-17.5); White Blood Count 8.8 K/mm3 (4.8-10.8)
[2019-06-11 18:03] LABS: Alanine Aminotransferase 51 U/L (12-78); Albumin Level 3.9 gm/dL (3.4-5.0); Albumin/Globulin Ratio 1.3 (1.1-1.8); Alkaline Phosphatase 48 U/L (46-116); Anion Gap 16.5 mEq/L (5-15); Aspartate Amino Transferase 26 U/L (15-37); Bilirubin,Total 0.5 mg/dL (0.2-1.0); Blood Urea Nitrogen 17 mg/dL (7-18); Calcium 8.7 mg/dL (8.5-10.1); Carbon Dioxide 25 mmol/L (21.0-32.0); Chloride 103 mmol/L (98-107); Creatinine,Serum 1.07 mg/dL (0.70-1.30); Estimated Glomerular Filt Rate 70 ml/min (>60); Free Thyroxine Index 2.1 ug/dL (5.93-13.13); GFR (African American) 84 ML/MIN (>60); Globulin 3.1 gm/dl (1.3-3.2); Glucose 103 mg/dL (74-106); Magnesium 2.1 mg/dL (1.4-2.2); Potassium 4.5 mmoL/L (3.5-5.1); Sodium 140 mmol/L (136-145); T4 (Thyroxine) 5.6 ug/dl (4.7-13.3); Thyroid Stimulating Hormone 1.56 uIU/ml (0.358-3.740); Triiodothryronine (T3) Uptake 37 % (31-39)
[2019-06-13 00:26] LABS: Vitamin B12 654 pg/mL (232-1245); Vitamin D 25 Hydroxy 25.2 ng/mL (30.0-100.0)
== END ==
PROVIDERS: Visit Provider Internal Medicine Adolescent Medicine
DX: R53.83 Other fatigue (principal); R53.81 Other malaise; E55.9 Vitamin D deficiency, unspecified; G47.37 Central sleep apnea in conditions classified elsewhere
CPT/HCPCS: 36415; 80053; 82607; 82652; 83735; 84436; 84443; 84479; 85025

== ENCOUNTER → 2019-06-20 20:12 | Outpatient (CLI) | payer BC, SELFPAY | PROVIDERS: PCP Internal Medicine Adolescent Medicine; Visit Provider Internal Medicine Adolescent Medicine | DX: G47.33 Obstructive sleep apnea (adult) (pediatric) (principal); R40.0 Somnolence | CPT/HCPCS: 95810 ==

== ENCOUNTER → 2019-10-08 12:36 | Outpatient (CLI) | payer BC, SELFPAY ==
[2019-10-08 14:20] LABS: Anion Gap 16.3 mEq/L (5-15); Blood Urea Nitrogen 19 mg/dL (7-18); Calcium 8.4 mg/dL (8.5-10.1); Carbon Dioxide 25 mmol/L (21.0-32.0); Chloride 101 mmol/L (98-107); Creatinine,Serum 1.08 mg/dL (0.70-1.30); Estimated Glomerular Filt Rate 69 ml/min (>60); GFR (African American) 84 ML/MIN (>60); Glucose 93 mg/dL (74-106); Potassium 4.3 mmoL/L (3.5-5.1); Sodium 138 mmol/L (136-145)
== END ==
PROVIDERS: Visit Provider Internal Medicine Adolescent Medicine
DX: I10 Essential (primary) hypertension (principal)
CPT/HCPCS: 36415; 80048

== ENCOUNTER 2023-06-28 11:52 | Emergency (ER) | payer MEDICARE, SELFPAY ==
[2023-06-28 11:54] VITALS: BP 187/108; PULSE 88; RESP 18; TEMP 36.7; O2SAT 96; BMI 27.5
[2023-06-28 12:00] VITALS: BP 154/95; PULSE 82; RESP 20; O2SAT 95
--- NOTE | 2023-06-28 12:17 | XR_ITS ---
FINAL REPORT CLINICAL HISTORY: puncture injury between 1st and 2nd digit FINDINGS: 3 views of the left hand were obtained. There is no acute fracture or dislocation. There are mild degenerative changes. There is no soft tissue abnormality. IMPRESSION: No acute process. Reviewed, Interpreted and Dictated by Mitchell Cai III, MD Transcribed by Eugene Her Authenticated and [facility]
--- NOTE | 2023-06-28 12:17 | PC.NURSE ---
rad at [facility]
[2023-06-28 12:30] VITALS: BP 142/92; PULSE 86; RESP 20; O2SAT 96
--- NOTE | 2023-06-28 13:05 | PC.NURSE ---
Dr. robert at [facility]
--- NOTE | 2023-06-28 13:23 | HMH.EDGENADL ---
Discharge Plan Disposition Patient Disposition: Home, Self-Care Prescriptions Prescriptions: New cephalexin 500 mg capsule 500 mg PO QID 5 Days Qty: 20 0RF No Action azithromycin 250 MG tablet 250 mg PO DIRECTED Qty: 6 0RF Rx Instructions: Take two (2) tablets on day #1, then one (1) tablet day #2 thru #5 cefdinir 300 MG capsule 300 mg PO BID Qty: 14 0RF Referrals Follow up/Referrals: Won Mason MD [Primary Care Provider] - See instructions Activity Restrictions/Add. Instructions Additional Instructions/Restrictions: You had a finger laceration and hand laceration today with an associated arterial hemorrhage that required a [id number] suture and multiple simple interrupted sutures. Please have your sutures removed in 7 to 10 days. Keep antibiotic ointment on it every day for the next week and take your prophylactic antibiotics. As stated there is no obvious foreign body noted on your x-ray but there may be small particles of wood which are highly immunogenic which could cause inflammation please follow-up if you are concerned about an infection with spreading redness or pus coming from the wound. Clinical Impressions Clinical Impression: Finger laceration, Arterial hemorrhage Instructions Patient Instructions: DI for Laceration Repair Discharge ED Provider: Mile Santiago General Adult HPI General Chief complaint: Wound/Laceration Stated complaint: [id number] left thumb and index finger cut Time Seen by Provider: 06/28/23 12:53 Mode of Arrival: Ambulatory Source of Information: Patient Limitations: No Limitations Description of Symptoms (Recalled from ER Triage Doc. by RN): puncture laceration to top of L hand beside of thumb. Pt reports was using a drill, drill slipped and cut pt. Small amount of bleeding noted, pressure dressing applied to area. +cap refill. History of Present Illness HPI narrative: Patient is a 68-year-old male here with an injury laceration and soft tissue injury on the left hand secondary to a drill bit they lost control of that went into the dorsal aspect between the thumb and first digit on the volar soft tissue. Tetanus is not up-to-date. No antibiotic allergies no injuries elsewhere. He did have arterial hemorrhaging coming from the area right after the initial wound. Related Data Previous Rx's Medication Instructions Recorded azithromycin 250 mg tablet 250 mg PO DIRECTED #6 tabs 04/06/19 cefdinir 300 mg capsule 300 mg PO BID #14 caps 04/06/19 cephalexin 500 mg capsule 500 mg PO QID 5 days #20 caps 06/28/23 Allergies Allergy/AdvReac Type Severity Reaction Status Date / Time No Known Allergies Allergy Verified 04/03/19 14:53 [facility] Disclaimer: The information contained in this section may have been updated after the patient was seen, as this information can be updated by other users. Social History Smoking Status: Never smoker alcohol intake: current current occupational status: employed Travel in the last 8 weeks: None household members: spouse and children housing: house current occupation: distribution ROS Obtained: Yes All systems reviewed & no additional complaints except as documented Physical Exam General General appearance: alert Respiratory Respiratory exam: Present normal lung sounds bilaterally Cardiovascular Cardiovascular exam: Present regular rate; Absent tachycardia Extremities Exam Extremities exam: Present other (Left hand between the thumb and first digit between the interspace and the dorsum there is a 4 cm laceration that has an associated small arterial hemorrhage tissue is mangled) Neurological Exam Neurological exam: Present alert and oriented X3 Medical Decision Making [place] Inquiry Pt receiving controlled substance: No Vital Signs: 06/28/23 11:54 06/28/23 12:00 06/28/23 12:30 Temperature 98.1 F Temperature Source Oral Pulse Rate 82 86 Pulse Rate [Rig
[2023-06-28 13:32] VITALS: BP 141/94; PULSE 77; RESP 18; TEMP 36.7; O2SAT 98
== END 2023-06-28 13:34 | disposition home or self-care (01) ==
PROVIDERS: Emergency Provider Student in an Organized Health Care Education/Training Program; PCP Internal Medicine Adolescent Medicine
DX: S61.211A Laceration without foreign body of left index finger without damage to nail, initial encounter (principal); S61.012A Laceration without foreign body of left thumb without damage to nail, initial encounter; W29.8XXA Contact with other powered hand tools and household machinery, initial encounter; Z23 Encounter for immunization
CPT/HCPCS: 12042; 73130; 90715; 96372; 99283

== ENCOUNTER 2023-07-06 13:49 | Emergency (ER) | payer MEDICARE, SELFPAY ==
[2023-07-06 13:50] VITALS: BP 157/88; PULSE 96; RESP 18; TEMP 36.7; O2SAT 97; BMI 32.1
[2023-07-06 14:11] VITALS: BP 157/88; PULSE 96; RESP 18; TEMP 36.7; O2SAT 97
== END 2023-07-06 14:11 | disposition home or self-care (01) ==
LOC: UTC 13:52
PROVIDERS: Emergency Provider Nurse Practitioner Family; PCP Internal Medicine Adolescent Medicine
DX: Z48.02 Encounter for removal of sutures (principal)

== ENCOUNTER 2024-08-18 12:37 | Emergency (ER) | payer MEDICARE, SELFPAY ==
[2024-08-18 13:20] VITALS: BP 142/87; PULSE 75; RESP 18; TEMP 36.7; O2SAT 98; BMI 31.4
--- NOTE | 2024-08-18 13:40 | EXP.UTC ---
Discharge Plan Disposition Patient Disposition: Home, Self-Care Condition: Good Prescriptions Prescriptions: New erythromycin 5 mg/gram (0.5 %) ointment 0.5 inch ophthalmic (eye) QID 7 Days Qty: 7 0RF Rx Instructions: apply 1 cm ribbon in right eye as directed No Action atorvastatin 40 mg tablet 40 mg PO DAILY Patient Comments: TAKE 1 TABLET BY MOUTH ONCE DAILY lisinopril 5 mg tablet 5 mg PO DAILY Patient Comments: TAKE 1 TABLET BY MOUTH ONCE DAILY hydrochlorothiazide 25 mg tablet 25 mg PO DAILY Patient Comments: TAKE 1 TABLET BY MOUTH ONCE DAILY fluticasone propionate 50 mcg/actuation spray,suspension 1 spray INTRANASAL DAILY Patient Comments: USE 1 SPRAY(S) IN EACH NOSTRIL ONCE DAILY loratadine 10 mg tablet 10 mg PO DAILY Patient Comments: TAKE 1 TABLET BY MOUTH ONCE DAILY Referrals Follow up/Referrals: Won Mason MD [Primary Care Provider] - See instructions Activity Restrictions/Add. Instructions Additional Instructions/Restrictions: Use eye ointment as prescribed Follow up with Eye Doctor on Tuesday if no improvement or any worsening of symptoms Over the counter Motrin and/or Tylenol for pain Return if needed Straight to ER if any life threatening symptoms Clinical Impressions Clinical Impression: Eye problem Instructions Patient Instructions: DI for Corneal Abrasion, Erythromycin Ophthalmic Print Language Print Language: Beninese Discharge ED Provider: Elvira Abdullahi [facility] General Stated complaint: right eye pain Mode of Arrival: Ambulatory Source of Information: Patient Limitations: No Limitations Time Seen by Provider: 08/18/24 13:40 Description of Symptoms (Recalled from Triage Doc. by RN): PATIENT C/O PAIN TO RIGHT EYE AFTER HE WOKE UP AND HE RUBBED HIS EYE THIS MORNING HEENT Symptoms (Recalled from RN notes): Yes Resp Symptoms (Recalled from RN notes): No Skin Symptoms (Recalled from RN notes): No MS Symptoms (Recalled from RN notes): No Functional Status (Recalled from RN notes): WNL History of Present Illness Provider Complaint: Patient states that he woke up this morning around 5am and he rubbed his right eye and started having pain/burning and watering in his eye Denies getting anything into his eye but still having watering and irritation in his eye so he came in to get it checked Related Data Home Medications ?Medication ?Instructions ?Recorded ?Confirmed atorvastatin 40 mg tablet 40 mg PO DAILY 08/18/24 08/18/24 fluticasone propionate 50 1 spray intranasal DAILY 08/18/24 08/18/24 mcg/actuation nasal spray,suspension hydrochlorothiazide 25 mg tablet 25 mg PO DAILY 08/18/24 08/18/24 lisinopril 5 mg tablet 5 mg PO DAILY 08/18/24 08/18/24 loratadine 10 mg tablet 10 mg PO DAILY 08/18/24 08/18/24 Previous Rx's ?Medication ?Instructions ?Recorded erythromycin 5 mg/gram (0.5 %) eye 0.5 inch ophthalmic (eye) QID 7 08/18/24 ointment days #7 grams Allergies Allergy/AdvReac Type Severity Reaction Status Date / Time No Known Allergies Allergy Verified 07/06/23 14:08 Worker's Comp Is this a Worker's Comp case?: No [facility] Dis[facility]: The information contained in this section may have been updated after the patient was seen, as this information can be updated by other users. Social History Smoking Status: Never smoker alcohol intake: current alcohol intake frequency: holidays/special occasions only current occupational status: employed Travel in the last 8 weeks: None household members: spouse and children housing: house current occupation: distribution ROS Obtained: Yes All systems reviewed & no additional complaints except as documented and Yes Systems reviewed as appropriate & no additional complaints except as documented Constitutional Constitutional: Reports system reviewed and no additional complaints, except as documented and Reports as per HPI Eyes Eyes: Reports system reviewed and no additional complaints, except as documented, Reports as per HPI, Reports eye discharge (watering and burning like feeling) and Reports irritation ENT Ears, Nose, Mouth, and Throat: Reports system reviewed and no additional complaints, except as documented and Reports as per HPI Cardiovascular Cardiovascular: Reports system reviewed and no additional complaints, except as documented and Reports as per HPI Respiratory Respiratory: Reports system reviewed and no additional complaints, except as documented and Reports as per HPI Gastrointestinal Gastrointestingal: Reports system reviewed and no additional complaints, except as documented and as per HPI Physical Exam General General appearance: alert and in no apparent distress Eye Eye exam: Present other (clear watery drainage and redness light makes watering worse ) Respiratory Respiratory exam: Present normal lung sounds bilaterally; Absent respiratory distress or wheezes Cardiovascular Cardiovascular exam: Present regular rate, normal rhythm and normal heart sounds Abdominal Exam Abdominal exam: Present soft and normal bowel sounds; Absent distention or tenderness Neurological Exam Neurological exam: Present alert, oriented X3 and normal gait Medical Decision Making Medical Records Screening: Per USPSTF and CDC recommendations, given the prevalence of disease in our region, it is our hospital?s policy to screen for HIV and viral Hepatitis for all patients aged 18 and over and those with ongoing risk factors. [place] Inquiry Pt receiving controlled substance: No [place] was queried for this patient: No Vital Signs: 08/18/24 13:20 Temperature 98.1 F Temperature Source Oral Pulse Rate [Left Brachial] 75 Respiratory Rate 18 Blood Pressure [Left Arm] 142/87 H Blood Pressure Mean [Left Arm] 105 Blood Pressure Source [Left Arm] Automatic Cuff Blood Pressure Position [Left Arm] Sitting 02 Sat by Pulse Oximetry 98 Oxygen Delivery Method Room Air Medical Decision Narrative: Spoke with Dr Gutiérrez and informed him of patient complaints and what seen on exam will start him on erythromycin ointment and have him follow up in the office on Tuesday if no improvement Procedures Eye Exam/FB Removal Location: eye (R) Topical anesthetic used: tetracaine Fluorescein Stick(s) used: Yes Time Out performed: Yes Procedure performed under: direct visualization with magnification Technique: irrigation Post-procedure medication: ophthalmic antibiotic Eye irrigated w/saline (#ccs): 60 Patient tolerated procedure: well and no complications Complications: other (corneal abrasion )
[2024-08-18 14:05] VITALS: BP 142/87; PULSE 75; RESP 18; TEMP 36.7; O2SAT 98
== END 2024-08-18 14:08 | disposition home or self-care (01) ==
PROVIDERS: Emergency Provider Nurse Practitioner; PCP Internal Medicine Adolescent Medicine
DX: S05.00XA Injury of conjunctiva and corneal abrasion without foreign body, unspecified eye, initial encounter (principal); X58.XXXA Exposure to other specified factors, initial encounter
CPT/HCPCS: 99213; G0381